=== PATIENT | female | born 1990 | race Caucasian/White ===

== ENCOUNTER 2016-09-28 12:11 | Emergency (ER) | payer MEDICAID ==
[~2016-09-28] VITALS: Ht 165.1 cm; Wt 66.2 kg
[~2016-09-28 12:11] MED LIST: CLOTRIMAZOLE VA21 GM VAGIN; FLUCONAZOLE150 MG ORAL; NORCO 5-325 TA1 EACH ORAL
[2016-09-28] MEDS ORDERED: NKM (12:19)
[2016-09-28] MEDS ORDERED: Famotidine 20 MG/ 2ML VIAL IVP ONE (12:45)
--- NOTE | 2016-09-28 12:45 | Emergency Room Report ---
History of Present Illness General Chief Complaint: Abdominal Pain Source: Patient Present Illness HPI The pt is a 26 yo F with a Hx of cholelithiasis s/p cholecystectomy 2 years prior presenting for RUQ and epigastric pain which has been present on and off for the past 3 months. Pain is described as a 10/10 sharp sensation which is worsened with eating. Pain does radiate to the mid chest and patient also reports increased salivation with pain. Patient denies being diagnosed with GERD or taking any medications for it. Pt does admit to constipation Allergies: Coded Allergies: MORPHINE (Verified Allergy, Severe, 07/29/13) Patient History Past Medical History: see triage record Past Surgical History: [place] Pertinent Family History: none Last Menstrual Period: 08/29/16 Reviewed Nursing Documentation: PMH: Agreed, PSxH: Agreed Nursing Documentation-[facility] Past Medical History: No Stated History Hx Cardiac Problems: No Hx Cancer: No Hx Gastrointestinal Problems: Yes Hx Neurological Problems: No Review of Systems All Other Systems: negative except mentioned in HPI Physical Exam Vital Signs Date Time Temp Pulse Resp B/P Pulse Ox O2 Delivery O2 Flow Rate FiO2 09/28/16 12:14 98.1 77 16 107/67 99 Room Air Sp02 EP Interpretation: reviewed, normal General Appearance: no apparent distress, alert, GCS 15, non-toxic Head: normocephalic, atraumatic Eyes: bilateral eye PERRL, bilateral eye normal inspection ENT: hearing grossly normal, normal pharynx, no angioedema, normal voice Cardiovascular #1: regular rate, rhythm, no edema Gastrointestinal: normal bowel sounds, soft, no mass, no guarding, no hernia, tenderness - RUQ and epigastric, other - surgical scars evident Genitourinary: normal inspection, no CVA tenderness Musculoskeletal: back normal, gait/station normal, normal range of motion, non- tender, calf tenderness Neurologic: alert, oriented x3, responsive, motor strength/tone normal, sensory intact, speech normal Skin: normal color, no rash, warm/dry, well hydrated Lymphatic: no adenopathy Medical Decision Making PA Attestation Dr. Robb is my supervising physician. Patient management was discussed with my supervising physician Diagnostic Impression: Primary Impression: GERD (gastroesophageal reflux disease) ER Course The pt is a 26 yo F with a Hx of cholelithiasis s/p cholecystectomy 2 years prior presenting for RUQ and epigastric pain Differential diagnoses considered include but not limited to gastritis, GERD, pancreatitis, appendicitis, , UTI PE: Vitals WNL. Afebrile. NAD Abd: Soft. Normal bowel sounds. There is tenderness to palpation over right upper quadrant and epigastric region. Surgical scars consistent with cholecystectomy. No distention. No guarding. No discoloration The patient is given IV Pepcid and Zofran and states that she is feeling better. CBC and CMP unremarkable. No leukocytosis. Urinalysis not consistent with UTI Abdominal ultrasound unremarkable The patient will be discharged home with a prescription for omeprazole and Pepcid. The patient will followup with primary care doctor. ER precautions are given Laboratory Tests Test 09/28/16 12:45 White Blood Count 6.9 K/UL (4.8-10.8) Red Blood Count 4.07 M/UL (4.20-5.40) L Hemoglobin 13.9 G/DL (12.0-16.0) Hematocrit 39.5 % (37.0-47.0) Mean Corpuscular Volume 97 FL (80-99) Mean Corpuscular Hemoglobin 34.2 PG (27.0-31.0) H Mean Corpuscular Hemoglobin Concent 35.2 G/DL (32.0-36.0) Red Cell Distribution Width 11.4 % (11.6-14.8) L Platelet Count 212 K/UL (150-450) Mean Platelet Volume 6.9 FL (6.5-10.1) Neutrophils (%) (Auto) 55.4 % (45.0-75.0) Lymphocytes (%) (Auto) 35.4 % (20.0-45.0) Monocytes (%) (Auto) 7.7 % (1.0-10.0) Eosinophils (%) (Auto) 0.8 % (0.0-3.0) Basophils (%) (Auto) 0.7 % (0.0-2.0) Urine Color Yellow Urine Appearance Slightly cloudy Urine pH 6 (4.5-8.0) Urine Specific [place] 1.015 (1.005-1.035) Urine Protein Negative (NEGATIVE) Urine Glucose (UA) Negative (NEGATIVE) Urine Ketones 1+ (NEGATIVE) H Urine Occult Blood 1+ (NEGATIVE) H Urine Nitrite Negative (NEGATIVE) Urine Bilirubin Negative (NEGATIVE) Urine Urobilinogen Normal MG/DL (0.0-1.0) Urine Leukocyte Esterase Negative (NEGATIVE) Urine RBC 2-4 /HPF (0 - 2) H Urine WBC 0-2 /HPF (0 - 2) Urine Squamous Epithelial Cells Few /LPF (NONE/OCC) Urine Bacteria Few /HPF (NONE) Urine Mucus Few /LPF (NONE/OCC) H Urine HCG, Qualitative Negative Sodium Level 137 mEQ/L (135-145) Potassium Level 3.6 mEQ/L (3.4-4.9) Chloride Level 100 mEQ/L (98-107) Carbon Dioxide Level 24 mEQ/L (20-30) Anion Gap 13 (5-15) Blood Urea Nitrogen 13 mg/dL (7-23) Creatinine 0.7 mg/dL (0.5-0.9) Estimate Glomerular Filtration Rate > 60 mL/min (>60) Glucose Level 83 mg/dL (74-106) Calcium Level 9.1 mg/dL (8.6-10.2) Total Bilirubin 0.6 mg/dL (0.0-1.2) Aspartate Amino Transferase (AST) 15 U/L (5-40) Alanine Aminotransferase (ALT) 16 U/L (3-33) Alkaline Phosphatase 91 U/L (35-104) Total Protein 7.2 g/dL (6.6-8.7) Albumin 4.3 g/dL (3.5-5.2) Globulin 2.9 g/dL Albumin/Globulin Ratio 1.4 (1.0-2.7) Amylase Level 132 U/L (10-110) H Lipase 52 U/L (< 60) Lab Results Impression CBC and CMP unremarkable. No leukocytosis. Urinalysis not consistent with UTI CT/MRI/US Diagnostic Results CT/MRI/US Diagnostic Results : Imaging Test Ordered: Abd US Impression No acute findings Last Vital Signs Date Time Temp Pulse Resp B/P Pulse Ox O2 Delivery O2 Flow Rate FiO2 09/28/16 12:14 98.1 77 16 107/67 99 Room Air Status: improved Disposition: HOME, SELF-CARE Condition: Improved Scripts Famotidine (PEPCID) 20 Mg Tablet 20 MG ORAL DAILY, #30 TAB 0 Refills Prov: TERZIANMAURICIO P.A. 09/28/16 Omeprazole (OMEPRAZOLE) 20 Mg Capsule.dr 20 MG ORAL DAILY, #30 CAP Prov: MAURICIO PARISH 09/28/16 MAURICIO PARISH Sep 28, 2016 12:45
[2016-09-28 13:17] LABS: BASOPHILS % (AUTO) 0.7 % (0.0-2.0); EOSINOPHILS % (AUTO) 0.8 % (0.0-3.0); LYMPHOCYTES % (AUTO) 35.4 % (20.0-45.0); MEAN CORPUSCULAR HEMOGLOBIN 34.2 PG (27.0-31.0); MEAN CORPUSCULAR HGB CONC 35.2 G/DL (32.0-36.0); MEAN CORPUSCULAR VOLUME 97 FL (80-99); MEAN PLATELET VOLUME 6.9 FL (6.5-10.1); MONOCYTES % (AUTO) 7.7 % (1.0-10.0); NEUTROPHILS % (AUTO) 55.4 % (45.0-75.0); PLATELET COUNT 212 K/UL (150-450); RED BLOOD COUNT 4.07 M/UL (4.20-5.40); RED CELL DISTRIBUTION WIDTH 11.4 % (11.6-14.8); WHITE BLOOD COUNT 6.9 K/UL (4.8-10.8)
[2016-09-28 13:31] LABS: APPEARANCE,URINE SLIGHTLY CLOUDY
[2016-09-28 13:32] LABS: BACTERIA,URINE FEW /HPF; KETONES,URINE 1+ (NEGATIVE); LEUKOCYTE ESTERASE ,URINE NEGATIVE (NEGATIVE); MUCUS,URINE FEW /LPF (NONE/OCC); NITRITE,URINE NEGATIVE (NEGATIVE); PH,URINE 6 (4.5-8.0); PROTEIN,URINE NEGATIVE (NEGATIVE); SQUAMOUS EPITHELIAL CELL,UR FEW /LPF (NONE/OCC); UROBILINOGEN,URINE NORMAL MG/DL (0.0-1.0); WBC,URINE 0-2 /HPF (0 - 2)
[2016-09-28 13:45] LABS: ALANINE AMINOTRANSFERASE 16 U/L (3-33); ALBUMIN/GLOBULIN RATIO 1.4 (1.0-2.7); AMYLASE 132 U/L (10-110); ANION GAP 13 (5-15); ASPARTATE AMINO TRANSFERASE 15 U/L (5-40); CALCIUM 9.1 mg/dL (8.6-10.2); CARBON DIOXIDE 24 mEQ/L (20-30); CHLORIDE 100 mEQ/L (98-107); CREATININE 0.7 mg/dL (0.5-0.9); GLOMERULAR FILTRATION RATE > 60 mL/min (>60); HEMOLYSIS 1; LIPASE 52 U/L (< 60); POTASSIUM 3.6 mEQ/L (3.4-4.9); SODIUM 137 mEQ/L (135-145); TOTAL PROTEIN 7.2 g/dL (6.6-8.7)
[2016-09-28 13:59] VITALS: BP 107/67
[2016-09-28] MEDS ORDERED: PEPCID20 MG ORAL (14:11)
[2016-09-28] MEDS ORDERED: OMEPRAZOLE20 M2 ORAL (14:11)
[2016-09-28 14:16] VITALS: BP 107/67
--- NOTE | 2016-09-30 09:10 | Diagnostic Imaging Report ---
Indication: PAIN Technique: Sellers-scale and duplex images of the upper abdomen were obtained Comparison: 07/28/2013 Findings: . Gallbladder is surgically absent. . Common bile duct measures 2 mm in diameter. No intrahepatic biliary ductal dilatation. Liver demonstrates normal echogenicity, no focal abnormality. Portal vein and hepatic veins are patent.. Pancreas is unremarkable. Spleen is unremarkable. Left kidney measures 10 cm in length. Right kidney measures 11.2 cm length. Both kidneys demonstrate normal echogenicity. There is no hydronephrosis. No focal abnormality. . Non-aneurysmal abdominal aorta. Impression: Surgically absent gallbladder Negative for dilated ducts or other significant abnormality
== END 2016-09-28 14:40 | disposition home or self-care (01) ==
LOC: EMR 12:40
DX: K21.9 Gastro-esophageal reflux disease without esophagitis (principal); Z90.49 Acquired absence of other specified parts of digestive tract; Z88.6 Allergy status to analgesic agent
CPT/HCPCS: 36415; 76700; 80053; 81003; 81025; 82150; 83690; 85025; 96374; 96375; 99284; J2405; S0028

== ENCOUNTER 2018-01-23 02:26 | Emergency (ER) | payer MEDICAID ==
[~2018-01-23] VITALS: Ht 165.1 cm; Wt 72.6 kg
[~2018-01-23 02:26] MED LIST changes: +NKM; +OMEPRAZOLE20 M2 ORAL; +PEPCID20 MG ORAL
[2018-01-23 02:45] VITALS: BP 112/80
[2018-01-23] MEDS ORDERED: Augmentin 875mg Tab ORAL ONE (02:45)
[2018-01-23] MEDS ORDERED: PSEUDOEPHEDRINE60 MG PO (02:47)
[2018-01-23] MEDS ORDERED: IBUPROFEN600 MG ORAL (02:47)
[2018-01-23] MEDS ORDERED: AUGMENTIN 875-1 EAC1 ORAL (02:47)
--- NOTE | 2018-01-23 02:47 | Emergency Room Report ---
History of Present Illness General Chief Complaint: Sore Throat Source: Patient Present Illness HPI Is a 27-year-old female with no past medical history. She presents with chief complaint of sore throat, ear pain and coughing. Onset for about a week now. She had fever the first day. Pain her right ear is getting worse in the last few days. No nausea no vomiting. Pain is 8 out of 10 pain worse with coughing and swallowing. Does have congestion of her nose Allergies: Coded Allergies: MORPHINE (Verified Allergy, Severe, 07/29/13) Patient History Past Medical History: see triage record, old chart reviewed Past Surgical History: other Pertinent Family History: none Social History: Denies: smoking Last Menstrual Period: 12/26/17 Now: No : 2 Para: 2 Immunizations: other Reviewed Nursing Documentation: PMH: Agreed; PSxH: Agreed Nursing Documentation-PMH Past Medical History: No History, Except For Hx Cardiac Problems: No Hx Cancer: No Hx Gastrointestinal Problems: Yes - bladder surgery Hx Neurological Problems: No Review of Systems Constitutional: Reports: fever Eye: Denies: eye pain, blurred vision ENT: Reports: ear pain, throat pain; Denies: nose congestion, throat swelling Respiratory: Reports: cough; Denies: shortness of breath Cardiovascular: Denies: chest pain, palpitations Gastrointestinal: Denies: abdominal pain, diarrhea, nausea, vomiting Musculoskeletal: Denies: back pain, joint pain Skin: Denies: rash Neurological: Denies: headache, numbness Endocrine: Denies: increased thirst, increased urine Hematologic/Lymphatic: Denies: easy bruising All Other Systems: negative except mentioned in HPI Physical Exam Vital Signs Date Time Temp Pulse Resp B/P (MAP) Pulse Ox O2 Delivery O2 Flow Rate FiO2 01/23/18 02:32 98.4 79 14 112/80 99 Room Air 98.4 vitals normal Sp02 EP Interpretation: reviewed, normal General Appearance: well appearing, no apparent distress, alert Head: normocephalic, atraumatic Eyes: bilateral eye PERRL, bilateral eye EOMI ENT: hearing grossly normal, normal pharynx, pharyngeal erythema, other - right TM is erythematous and bulging Neck: full range of motion, supple, no meningismus Respiratory: chest non-tender, lungs clear, normal breath sounds Cardiovascular #1: regular rate, rhythm, no murmur Gastrointestinal: normal bowel sounds, non tender, no mass, no organomegaly, no bruit, non-distended Musculoskeletal: back normal, gait/station normal, normal range of motion Psychiatric: mood/affect normal Skin: warm/dry Medical Decision Making Diagnostic Impression: Primary Impression: Viral upper respiratory infection Additional Impression: Otitis media, suppurative Qualified Codes: H66.001 - Acute suppurative otitis media without spontaneous rupture of ear drum, right ear ER Course Patient presents with a viral illness, complicated by otitis media. No evidence of perforation of the eardrum. No meningitis, sepsis, pneumonia or other serious bacterial infection. We'll discharge home. Dose of antibiotics given here. Last Vital Signs Date Time Temp Pulse Resp B/P (MAP) Pulse Ox O2 Delivery O2 Flow Rate FiO2 01/23/18 02:32 98.4 79 14 112/80 99 Room Air 98.4 Status: improved Disposition: HOME, SELF-CARE Condition: Stable Scripts Pseudoephedrine Hcl* (SUDAFED*) 60 Mg Tablet 60 MG PO Q6H, #30 TAB Prov: DAMASO ABBOTT M.D. 01/23/18 Ibuprofen* (MOTRIN*) 600 Mg Tablet 600 MG ORAL THREE TIMES A DAY, #30 TAB 0 Refills Prov: DAMASO ABBOTT M.D. 01/23/18 Amoxicillin/Potassium Clav 875-125* (AUGMENTIN 875-125 TABLET*) 1 Each Tablet 1 TAB ORAL TWICE A DAY, #14 TAB Prov: DAMASO ABBOTT M.D. 01/23/18 Additional Instructions: Increase fluid. Salt water gargle. Follow-up with your doctor in 7 days. Return if worse. DAMASO ABBOTT M.D. Jan 23, 2018 02:47
[2018-01-23 03:00] VITALS: BP 112/80
== END 2018-01-23 03:00 | disposition home or self-care (01) ==
LOC: EMR 03:00
DX: J06.9 Acute upper respiratory infection, unspecified (principal); H66.001 Acute suppurative otitis media without spontaneous rupture of ear drum, right ear; Z88.5 Allergy status to narcotic agent
CPT/HCPCS: 99284

== ENCOUNTER 2019-01-08 20:47 | Emergency (ER) | payer MEDICAID ==
[~2019-01-08] VITALS: Ht 165.1 cm; Wt 72.6 kg
[~2019-01-08 20:47] MED LIST changes: +AUGMENTIN 875-1 EAC1 ORAL; +IBUPROFEN600 MG ORAL; +PSEUDOEPHEDRINE60 MG PO
--- NOTE | 2019-01-08 21:02 | NUR ---
-ED Nurse Note: Pt arrived ED from home, c/o had urinary burning for 2 weeks. Pt is A/OX 4, Vital signs stable at this time, waiting for orders.
[2019-01-08 21:03] VITALS: BP 128/79
[2019-01-08] MEDS ORDERED: Cephalexin 500mg cap ORAL ONE (21:15)
--- NOTE | 2019-01-08 21:36 | Emergency Room Report ---
History of Present Illness General Chief Complaint: Female Urogenital Problems Source: Patient Present Illness HPI Is a 28-year-old female with no past medical history. She presents with chief complaint of dysuria, frequency the last 2-3 weeks. It would get better but worse in again. Now she has some mild left flank pain. No fever chills but no nausea no vomiting. [id number] peridium not helping. Denies any complaint. Allergies: Coded Allergies: MORPHINE (Verified Allergy, Severe, 07/29/13) Patient History Past Medical History: none, see triage record, old chart reviewed Past Surgical History: none Pertinent Family History: none Social History: Denies: smoking Last Menstrual Period: Dec 31 2018 Now: No Immunizations: other Reviewed Nursing Documentation: PMH: Agreed; PSxH: Agreed Nursing Documentation-PMH Hx Cardiac Problems: No Hx Cancer: No Hx Gastrointestinal Problems: Yes - bladder surgery Hx Neurological Problems: No Review of Systems Eye: Denies: eye pain, blurred vision ENT: Denies: ear pain, nose congestion, throat swelling Respiratory: Denies: cough, shortness of breath Cardiovascular: Denies: chest pain, palpitations Gastrointestinal: Denies: abdominal pain, diarrhea, nausea, vomiting Genitourinary: Reports: dysuria, frequency, urgency Musculoskeletal: Denies: back pain, joint pain Skin: Denies: rash Neurological: Denies: headache, numbness Endocrine: Denies: increased thirst, increased urine Hematologic/Lymphatic: Denies: easy bruising All Other Systems: negative except mentioned in HPI Physical Exam Vital Signs Date Time Temp Pulse Resp B/P (MAP) Pulse Ox O2 Delivery O2 Flow Rate FiO2 01/08/19 20:56 98.1 66 20 98 Room Air vitals unremarkable Sp02 EP Interpretation: reviewed, normal General Appearance: well appearing, no apparent distress, alert Head: normocephalic, atraumatic Eyes: bilateral eye PERRL, bilateral eye EOMI ENT: hearing grossly normal, normal pharynx Neck: full range of motion, supple, no meningismus Respiratory: chest non-tender, lungs clear, normal breath sounds Cardiovascular #1: regular rate, rhythm, no murmur Gastrointestinal: normal bowel sounds, non tender, no mass, no organomegaly, no bruit, non-distended Musculoskeletal: back normal, gait/station normal, normal range of motion Psychiatric: mood/affect normal Skin: warm/dry Medical Decision Making Diagnostic Impression: Primary Impression: UTI (urinary tract infection) Qualified Codes: N30.00 - Acute cystitis without hematuria ER Course Patient presents with UTI with possibly early pyelonephritis. No evidence of any sepsis, pneumonia, or dissection to name a few. We'll discharge home. Last Vital Signs Date Time Temp Pulse Resp B/P (MAP) Pulse Ox O2 Delivery O2 Flow Rate FiO2 01/08/19 20:56 98.1 66 20 98 Room Air Status: improved Disposition: HOME, SELF-CARE Condition: Stable Scripts Cephalexin* (KEFLEX*) 500 Mg Capsule 500 MG ORAL TID, #21 CAP Prov: Chico Lindo MD 01/08/19 Patient Instructions: Urinary Tract Infection Additional Instructions: Increase fluids. Follow-up with your DrRico in 2 to 3 days if not better. Return if symptom worsen. Chico Lindo MD January 08, 2019 21:36
[2019-01-08] MEDS ORDERED: CEPHALEXIN500 MG ORAL (21:38)
[2019-01-08 21:44] VITALS: BP 128/79
--- NOTE | 2019-01-08 22:59 | NUR ---
ER DISCHARGE NOTE: Patient is cleared to be discharged per Dr. Lindo. Meds given as ordered. Pt is aox4 on room air with stable vital signs. Pt was given dc and prescription instructions and was able to verbalize understanding. Pt ID band removed. Pt is able to ambulate with steady gait and took all belongings.
== END 2019-01-08 21:44 | disposition home or self-care (01) ==
LOC: EMR 20:57
DX: N30.00 Acute cystitis without hematuria (principal); Z88.6 Allergy status to analgesic agent
CPT/HCPCS: 87086; 99282

== ENCOUNTER 2019-01-24 21:02 | Emergency (ER) | payer MEDICAID ==
[~2019-01-24] VITALS: Ht 165.1 cm; Wt 77.1 kg
[~2019-01-24 21:02] MED LIST changes: +CEPHALEXIN500 MG ORAL
[2019-01-24 21:22] VITALS: BP 114/77
--- NOTE | 2019-01-24 21:22 | NUR ---
ED Nurse Note: pt walked in c/o UTI sx, pt states she was in the ED 1wk ago and has been taking keflex 1wk but no improvement after finishing medication. PT states doctor told her to come in. will cont monitor. urine specimen obtained.
[2019-01-24 21:52] LABS: APPEARANCE,URINE CLEAR; BILIRUBIN, URINE NEGATIVE (NEGATIVE); COLOR,URINE PALE YELLOW; GLUCOSE, URINE (UA) NEGATIVE (NEGATIVE); KETONES,URINE NEGATIVE (NEGATIVE); LEUKOCYTE ESTERASE ,URINE 1+ (NEGATIVE); NITRITE,URINE NEGATIVE (NEGATIVE); PH,URINE 6 (4.5-8.0); PROTEIN,URINE NEGATIVE (NEGATIVE); UROBILINOGEN,URINE NORMAL MG/DL (0.0-1.0)
[2019-01-24] MEDS ORDERED: PHENAZOPYRIDIN200 MG ORAL (22:30)
[2019-01-24] MEDS ORDERED: NITROFURANTOIN100 M2 ORAL (22:30)
[2019-01-24 22:35] VITALS: BP 118/70
--- NOTE | 2019-01-24 22:35 | NUR ---
ED Nurse Note:pt cleared to be d/c per ERMD, pt discharge and aftercare instruction provided w/ prescription, pt education done via discussion and handout, pt advised to follow up with pcp or return to ed if changes in condition, pt verbalized understanding and agrees with plan, vss, ambulatory w/ steady gait, left w/ all belongings.
--- NOTE | 2019-01-25 04:53 | Emergency Room Report ---
History of Present Illness General Chief Complaint: Female Urogenital Problems Source: Patient Present Illness HPI Patient is a 28-year-old female presented after increased urinary frequency and dysuria. Patient had recently been treated with Keflex for urinary tract infection. She had not been vomiting. Patient denies any fever. She reports having intermittent episodes of increased burning sensation. She denies any vaginal discharge. She denies being . Allergies: Coded Allergies: MORPHINE (Verified Allergy, Severe, 07/29/13) Patient History Past Medical History: see triage record Last Menstrual Period: 12/31/18 Now: No : 2 Para: 2 Reviewed Nursing Documentation: PMH: Agreed; PSxH: Agreed Nursing Documentation-PMH Past Medical History: No History, Except For Hx Cardiac Problems: No Hx Cancer: No Hx Gastrointestinal Problems: Yes - bladder surgery Hx Neurological Problems: No Review of Systems All Other Systems: negative except mentioned in HPI Physical Exam Vital Signs Date Time Temp Pulse Resp B/P (MAP) Pulse Ox O2 Delivery O2 Flow Rate FiO2 01/24/19 21:22 98.2 83 19 114/77 (89) 99 Room Air General Appearance: well appearing, no apparent distress, alert, GCS 15 Head: normocephalic, atraumatic ENT: hearing grossly normal, normal voice Neck: full range of motion, supple Respiratory: normal inspection, lungs clear, no respiratory distress, speaking full sentences Cardiovascular #1: normal inspection Gastrointestinal: normal inspection, non tender, soft Musculoskeletal: normal inspection Neurologic: normal inspection, alert, oriented x3, responsive, normal gait Psychiatric: mood/affect normal Skin: no rash Medical Decision Making Diagnostic Impression: Primary Impression: Urinary tract infection ER Course Patient presented for dysuria. Differential diagnosis include was not limited to urinary tract infection, urethritis, herpes, Zulema vaginitis among others. Urinalysis showed some evidence of urinary infection. Patient was given prescription for oral antibiotics. She is advised to return if she had any worsening of condition fever or other concerns. Labs Test 01/24/19 21:38 Urine Color Pale yellow Urine Appearance Clear Urine pH 6 (4.5-8.0) Urine Specific [place] 1.010 (1.005-1.035) Urine Protein Negative (NEGATIVE) Urine Glucose (UA) Negative (NEGATIVE) Urine Ketones Negative (NEGATIVE) Urine Blood 1+ (NEGATIVE) Urine Nitrite Negative (NEGATIVE) Urine Bilirubin Negative (NEGATIVE) Urine Urobilinogen Normal MG/DL (0.0-1.0) Urine Leukocyte Esterase 1+ (NEGATIVE) Urine RBC 2-4 /HPF (0 - 2) Urine WBC 0-2 /HPF (0 - 2) Urine Squamous Epithelial Cells Few /LPF (NONE/OCC) Urine Bacteria Few /HPF (NONE) Urine HCG, Qualitative Negative (NEGATIVE) Last Vital Signs Date Time Temp Pulse Resp B/P (MAP) Pulse Ox O2 Delivery O2 Flow Rate FiO2 01/24/19 22:35 97.9 80 21 118/70 100 Room Air Status: unchanged Disposition: HOME, SELF-CARE Condition: Stable Scripts Nitrofurantoin Monohyd/M-Cryst* (MACROBID 100 MG*) 100 Mg Capsule 100 MG ORAL EVERY 12 HOURS, #14 CAP Prov: Alec Solorio MD 01/24/19 Phenazopyridine Hcl* (PYRIDIUM*) 200 Mg Tablet 200 MG ORAL THREE TIMES A DAY, #14 TAB 0 Refills Prov: Alec Solorio MD 01/24/19 Referrals: NOT CHOSEN IPA/,REFERRING (PCP) Patient Instructions: Urinary Tract Infection Alec Solorio MD Jan 25, 2019 04:52
== END 2019-01-24 22:35 | disposition home or self-care (01) ==
LOC: EMR 22:07
DX: N39.0 Urinary tract infection, site not specified (principal); Z88.6 Allergy status to analgesic agent
CPT/HCPCS: 81003; 81025; 99283